=== PATIENT | male | born 1990 | race Two or more races ===

== ENCOUNTER 2019-07-25 15:02 | Emergency (ER) | payer SELFPAY ==
[~2019-07-25] VITALS: Ht 180.3 cm; Wt 62.0 kg
[2019-07-25] MEDS ORDERED: IBUPROFEN 600MG TABLET PO ONE (18:15)
[2019-07-25 18:19] VITALS: BP 127/92
== END 2019-07-25 18:29 | disposition home or self-care (01) ==
LOC: ER 15:50
DX: J11.1 Influenza due to unidentified influenza virus with other respiratory manifestations (principal); R50.81 Fever presenting with conditions classified elsewhere; M79.10 Myalgia, unspecified site
CPT/HCPCS: 99282; 99283